=== PATIENT | male | born 1990 | race Caucasian/White ===

== ENCOUNTER 2017-11-17 03:41 | Emergency (ER) | payer SELFPAY ==
[~2017-11-17] VITALS: Ht 167.6 cm; Wt 108.9 kg
[2017-11-17 03:47] VITALS: Ht 167.6 cm; Wt 108.9 kg
[2017-11-17 06:33] LABS: AMPHETAMINE QUAL UR NONE DETECTED (NEG <=1000)
[2017-11-17 09:07] VITALS: BP 121/82
== END 2017-11-17 09:21 | disposition home or self-care (01) ==
LOC: ED 03:41
PROVIDERS: Emergency Medicine Emergency Medical Services
DX: F10.129 Alcohol abuse with intoxication, unspecified (principal)
CPT/HCPCS: G0480; J7030